=== PATIENT | male | born 1980 | race American Indian/Alaskan Native ===

== ENCOUNTER 2019-02-06 07:49 | Emergency (ER) | payer OTHER ==
[2019-02-06 07:58] VITALS: BP 111/63
[2019-02-06] MEDS ORDERED: IBUPROFEN PO ONE (09:17)
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
== END 2019-02-06 10:24 | disposition home or self-care (01) ==
LOC: ED 07:49
DX: S39.012A Strain of muscle, fascia and tendon of lower back, initial encounter (principal); Z79.899 Other long term (current) drug therapy; Z88.0 Allergy status to penicillin; V89.2XXA Person injured in unspecified motor-vehicle accident, traffic, initial encounter; Y93.89 Activity, other specified; Y92.488 Other paved roadways as the place of occurrence of the external cause; Y99.8 Other external cause status
CPT/HCPCS: 72100; 99283

== ENCOUNTER 2019-03-27 21:32 | Emergency (ER) | payer SELFPAY ==
[2019-03-27 22:50] VITALS: BP 108/60
[2019-03-28] MEDS ORDERED: IBUPROFEN PO ONE (01:53)
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
== END 2019-03-28 03:20 | disposition home or self-care (01) ==
LOC: ED 21:32
DX: S13.4XXA Sprain of ligaments of cervical spine, initial encounter (principal); S39.012A Strain of muscle, fascia and tendon of lower back, initial encounter; S20.219A Contusion of unspecified front wall of thorax, initial encounter; Z88.0 Allergy status to penicillin; V49.49XA Driver injured in collision with other motor vehicles in traffic accident, initial encounter; Y93.89 Activity, other specified; Y92.89 Other specified places as the place of occurrence of the external cause; Y99.8 Other external cause status
CPT/HCPCS: 71046; 72040; 72100

== ENCOUNTER 2021-09-18 22:51 | Emergency (ER) | payer SELFPAY | END 2021-09-19 00:33 | disposition left against medical advice (07) | LOC: ED 22:51 | DX: R07.89 Other chest pain (principal); Z53.21 Procedure and treatment not carried out due to patient leaving prior to being seen by health care provider ==